=== PATIENT | female | born 1960 | race Caucasian/White ===

== ENCOUNTER 2017-04-02 08:06 | Emergency (ER) | payer OTHER ==
[2017-04-02 08:34] VITALS: BMI 29.6
[2017-04-02] MEDS ORDERED: Sodium Chloride 0.9% 1,000 ML IV STA (08:40)
--- NOTE | 2017-04-02 08:46 | ED PDOC ---
Arrival/HPI - General Chief Complaint: Flu-like Symptoms Time Seen by Provider: 04/02/17 08:09 Historian: Patient - History of Present Illness Narrative History of Present Illness (Text): 04/02/17 08:41 Cammy Rojas is a 56 year old female, whose past medical history includes hypertension, presents to the Emergency Department complaining of fever and right lower flank pain since few days. Patient states fever was "103-104 degrees " few days ago and has now lowered to "101 degrees". Patient informs associated mild cough, chills, dry mouth, itchy nose and throat. Patient denies any chest pain, shortness of breath, discomfort urinating, abdominal pain or any other complaints. Time/Duration: < week Symptom Course: Unchanged Activities at Onset: Light Context: Home Past Medical History - Provider Review Nursing Documentation Reviewed: Yes - Reproductive Menopause: Yes - Cardiac Hx Hypertension: Yes - Renal Hx Kidney Stones: Yes - Endocrine/Metabolic Hx Diabetes Mellitus Type 2: Yes - Hematological/Oncological Other/Comment: HIGH URIC ACID - Musculoskeletal/Rheumatological Hx Arthritis: Yes Hx Gout: Yes - Psychiatric Hx Substance Use: No - Surgical History Other/Comment: LITHOTREPSY - Anesthesia Hx Anesthesia: No Hx Anesthesia Reactions: No Hx Malignant Hyperthermia: No Family/Social History - Physician Review Nursing Documentation Reviewed: Yes Family/Social History: Unknown Family HX Smoking Status: Never Smoked Hx Alcohol Use: No Hx Substance Use: No Allergies/Home Meds Allergies/Adverse Reactions: Allergies No Known Allergies Allergy (Verified 05/09/15 22:41) Home Medications: Home Meds Medication Instructions Recorded Confirmed Atenolol [Tenormin] 100 mg PO DAILY 05/09/15 04/02/17 MetFORMIN [glucoPHAGE] 1,000 mg PO BID 05/09/15 04/02/17 Allopurinol [Zyloprim] 100 mg PO DAILY 04/02/17 04/02/17 Atorvastatin [Lipitor] 20 mg PO DAILY 04/02/17 04/02/17 Review of Systems - Physician Review All systems were reviewed & negative as marked: Yes - Review of Systems Constitutional: Fevers, Other (chills ) Eyes: Normal ENT: Sore Throat, Other (itchy nose ) Respiratory: Cough (mild cough ). absent: SOB Cardiovascular: Normal. absent: Chest Pain Gastrointestinal: Normal. absent: Abdominal Pain Genitourinary Female: Normal. absent: Dysuria Musculoskeletal: Back Pain (right lower flank ) Skin: Normal Neurological: Normal Endocrine: Normal Hemo/Lymphatic: Normal Psychiatric: Normal Physical Exam Vital Signs Reviewed: Yes Vital Signs Temp Pulse Resp BP Pulse Ox 04/02/17 11:05 79 18 138/79 98 04/02/17 11:03 98.7 F 16 130/72 100 04/02/17 08:54 99.3 F 04/02/17 08:41 98.9 F 04/02/17 08:24 99.3 F 86 16 142/84 96 Temperature: Afebrile Blood Pressure: Normal Pulse: Regular Respiratory Rate: Normal Appearance: Positive for: Well-Appearing, Non-Toxic, Comfortable Pain Distress: None Mental Status: Positive for: Alert and Oriented X 3 - Systems Exam Head: Present: Atraumatic, Normocephalic Pupils: Present: PERRL Extroacular Muscles: Present: EOMI Conjunctiva: Present: Normal Mouth: Present: Dry Neck: Present: Normal Range of Motion Respiratory/Chest: Present: Clear to Auscultation, Good Air Exchange. No: Respiratory Distress, Accessory Muscle Use Cardiovascular: Present: Regular Rate and Rhythm, Normal S1, S2. No: Murmurs Abdomen: Present: Normal Bowel Sounds. No: Tenderness, Distention, Peritoneal Signs Back: Present: Other (right lower flank pain ) Upper Extremity: Present: Normal Inspection. No: Cyanosis, Edema Lower Extremity: Present: Normal Inspection. No: Edema Neurological: Present: GCS=15, CN II-XII Intact, Speech Normal Skin: Present: Warm, Dry, Normal Color. No: Rashes Psychiatric: Present: Alert, Oriented x 3, Normal Insight, Normal Concentration Medical Decision Making ED Course and Treatment: 04/02/17 08:40 Impression: 56 year old female complaining of right lower flank pain and flue- like symptoms. Plan: -- CT Abdomen/Pelvis -- Labs -- Chest X-ray -- Tylenol -- IV Fluids -- Influenze vaccine -- Urinalysis -- Reassess and disposition 04/02/17 10:00 CT of Abdomen/Pelvis reviewed by radiologist, shows: No obstructive uropathy is identified bilaterally although a likely capsular punctate calcifications unchanged in position at the upper pole left kidney posteriorly an 8 mm intrarenal calculus is nonobstructive at the lower pole left kidney as well. No right-sided radiodense urolithiasis. No perinephric reaction bilaterally. Urinary bladder is poorly evaluated due to decompression with mural thickening not completely excluded. Consider potential cystitis or other etiologies though neither of these is favored given contraction of the bladder. No bowel obstruction, mesenteric edema, ascites or free intraperitoneal gas identified. Lack of contrast agents limits interpretation. 3.9 cm benign myelolipoma left adrenal gland again appreciated. 04/02/17 11:24 pt reassesed pain improved/resolved. influenza positive. neg sirs criteria. pt asking for dc. - Lab Interpretations Lab Results: 04/02/17 08:50 04/02/17 08:50 Lab Results 04/02/17 08:50: Influenza Typ A,B (EIA) Pos for influenza a H 04/02/17 08:50: Sodium 140, Potassium 3.9, Chloride 103, Carbon Dioxide 25, Anion Gap 15, BUN 7, Creatinine 0.7, Est GFR ( Amer) > 60, Est GFR (Non- Af Amer) > 60, Random Glucose 117 H, Calcium 9.2, Total Bilirubin 0.3, AST 25, ALT 29, Alkaline Phosphatase 71, Total Protein 7.7, Albumin 4.0, Globulin 3.7, Albumin/Globulin Ratio 1.1, Lipase 161 04/02/17 08:50: PT 12.2, INR 1.15 H, APTT 32.1 04/02/17 08:50: WBC 5.0 D, RBC 4.23, Hgb 12.0, Hct 37.2, MCV 87.9, MCH 28.4, MCHC 32.3, RDW 13.7, Plt Count 267, MPV 10.0, Gran % 59.7, Lymph % (Auto) 25.0, [place] % (Auto) 14.7 H, Eos % (Auto) 0.4 L, Baso % (Auto) 0.2, Gran # 3.01, Lymph # 1.3, [place] # 0.7 H, Eos # 0.0, Baso # 0.01 04/02/17 08:48: Urine Color Yellow, Urine Appearance Clear, Urine pH 6.5, Ur Specific [place] 1.020, Urine Protein Trace H, Urine Glucose (UA) Negative, Urine Ketones Negative, Urine Blood Small H, Urine Nitrate Negative, Urine Bilirubin Negative, Urine Urobilinogen 0.2, Ur Leukocyte Esterase Trace H, Urine RBC 2 - 5, Urine WBC 1 - 3, Ur Epithelial Cells 4 - 5, Amorphous Sediment Small, Urine Bacteria Many, Urine Other Uyeast - RAD Interpretation Radiology Orders: 04/02/17 08:40 ABD & PELVIS W/O PO OR IV CONT [CT] Stat 04/02/17 08:41 CHEST ONE VIEW [RAD] Stat Packaging Clerk: Radiologist - Medication Orders Current Medication Orders: Discontinued Medications Acetaminophen (Tylenol 325mg Tab) 975 mg PO STAT STA Stop: 04/02/17 08:41 Last Admin: 04/02/17 08:54 Dose: 975 mg MAR Pain/Vitals Document 04/02/17 08:54 MS (Rec: 04/02/17 08:55 [email or web address]) Pain Reassessment Is This A Pain ReAssessment? No Sleep Is patient sleeping during reassessment? No Presence of Pain Presence of Pain Yes Pain Scale Used Pain Scale Used Numeric Location Upper or Lower Lower Pain Location Body Site Back Description Constant Intensity 6 Scale Used Numeric Pain Behavior Facial Grimacing Vitals Temperature (97.6 F-99.6 F) 99.3 F Temperature Source Oral Sodium Chloride (Sodium Chloride 0.9%) 1,000 mls @ 1,000 mls/hr IV .Q1H STA Stop: 04/02/17 09:39 Last Admin: 04/02/17 08:53 Dose: 1,000 mls/hr eMAR Start Stop Document 04/02/17 08:53 MS (Rec: 04/02/17 08:54 MS [email or web address]) Intravenous Solution Start Date 04/02/17 Start Time 08:53 End Date 04/02/17 End time 09:53 Total Infusion Time 60 Oseltamivir Phosphate (Tamiflu Cap) 75 mg PO STAT STA PRN Reason: Protocol Stop: 04/02/17 09:19 Last Admin: 04/02/17 09:50 Dose: 75 mg - [place] Statement The provider has reviewed the documentation as recorded by the Kelvin Justin. All medical record entries made by the Kelvin were at my direction and personally dictated by me. I have reviewed the chart and agree that the record accurately reflects my personal performance of the history, physical exam, medical decision making, and the department course for this patient. I have also personally directed, reviewed, and agree with the discharge instructions and disposition. Disposition/Present on Arrival - Present on Arrival Any Indicators Present on Arrival: No History of DVT/PE: No History of Uncontrolled Diabetes: No Urinary Catheter: No History of Decub. Ulcer: No History Surgical Site Infection Following: None - Disposition Have Diagnosis and Disposition been Completed?: Yes Diagnosis: Influenza Disposition: HOME/ ROUTINE Disposition Time: 11:00 Patient Plan: Transfer To Condition: STABLE Discharge Instructions (ExitCare): Influenza (ED), Flank Pain (ED) Additional Instructions: please follow up with your doctor. return to er with worsening symptoms or concerns. Prescriptions: Oseltamivir Phosphate [Tamiflu] 75 mg PO BID #10 capsule Referrals: Romain Cardozo MD [Primary Care Provider] - Follow up with primary Forms: [employer] ([place])
[2017-04-02 09:03] LABS: BASO # 0.01 K/mm3 (0.0-2.0); BASO % 0.2 % (0.0-3.0); EOS % 0.4 % (1.5-5.0); GRAN # 3.01 (1.4-6.5); GRAN % 59.7 % (50.0-68.0); LYMPH # 1.3 (1.2-3.4); MEAN CELL VOLUME 87.9 fl (80.0-105.0); MEAN CORPUSCULAR HEMOGLOBIN 28.4 pg (25.0-35.0); MEAN CORPUSCULAR HGB CONC 32.3 g/dl (31.0-37.0); MONO # 0.7 (0.1-0.6); MONO % 14.7 % (1.0-6.0); RBC 4.23 10^6/uL (3.5-6.1); RED CELL DISTRIBUTION WIDTH 13.7 % (11.5-14.5)
[2017-04-02 09:08] LABS: ALB/GLOB RATIO 1.1 (1.1-1.8); ALT/SGPT 29 U/L (7-56); AST/SGOT 25 U/L (14-36); BLOOD UREA NITROGEN 7 mg/dL (7-21); CALCIUM 9.2 mg/dL (8.4-10.5); GFR AFRICAN-AMERICAN > 60; GFR NON-AFRICAN AMERICAN > 60; LIPASE 161 U/L (23-300)
[2017-04-02 09:10] LABS: PH,URINE 6.5 (4.7-8.0); URINE BILIRUBIN NEGATIVE (NEGATIVE); URINE BLOOD SMALL (NEGATIVE); URINE GLUCOSE (UA) NEGATIVE (NEGATIVE); URINE LEUKOCYTE ESTERASE TRACE Leu/uL (NEGATIVE); URINE NITRATE NEGATIVE (NEGATIVE); URINE PROTEIN TRACE mg/dL (<30 mg/dL); URINE UROBILINOGEN 0.2 E.U./dL (<1 E.U./dL)
[2017-04-02 09:13] LABS: URINE APPEARANCE CLEAR (CLEAR); URINE COLOR YELLOW (YELLOW)
[2017-04-02 09:14] LABS: INR 1.15 (0.93-1.08); PARTIAL THROMBOPLASTIN TIME 32.1 Seconds (25.1-36.5); PROTHROMBIN TIME 12.2 SECONDS (9.4-12.5)
[2017-04-02 09:18] LABS: URINE AMORPHOUS SEDIMENT SMALL; URINE BACTERIA MANY (NEG)
--- NOTE | 2017-04-02 10:11 | CT ---
PROCEDURE: CT Abdomen and Pelvis without intravenous contrast HISTORY: flank pain COMPARISON: Abdomen and pelvis CT examination with contrast 07/21/2016. TECHNIQUE: Helical CT of the abdomen and pelvis was performed without oral or intravenous contrast as per referring physician request. Contrast Dose: None Radiation dose: Total exam DLP = 938.18 mGy-cm. This CT exam was performed using one or more of the following dose reduction techniques: Automated exposure control, adjustment of the mA and/or kV according to patient size, and/or use of iterative reconstruction technique. FINDINGS: LOWER THORAX: Mild cardiomegaly is again appreciated. No pleural or pericardial effusion. Linear atelectasis hotel server for or fibrosis is appreciated at the left base in the interval. LIVER: Unremarkable. No gross lesion or ductal dilatation. GALLBLADDER AND BILE DUCTS: Unremarkable. PANCREAS: Unremarkable. No gross lesion or ductal dilatation. SPLEEN: Unremarkable. ADRENALS: The right adrenal gland remains unremarkable appearing. Left adrenal gland is remarkable for a 3.9 x 3.2 cm largely fatty lesion compatible with benign myelolipoma once again. KIDNEYS AND URETERS: No interval obstructive uropathy bilaterally. The perinephric spaces are unremarkable bilaterally as well. An 8 mm intrarenal calculus noted at the lower pole left kidney with a punctate calcification in the periphery of the upper pole left kidney renal parenchyma, which may actually be capsular rather than parenchymal. VASCULATURE: Unremarkable. No aortic aneurysm. BOWEL: Stomach is mildly distended with retained fluid and is limited evaluation. Lack of oral contrast further limits evaluation of the gastrointestinal tract. There is no bowel obstruction appreciated with moderate fecal loading seen throughout the majority colon. APPENDIX: Unremarkable. Normal appendix. PERITONEUM: Unremarkable. No free fluid. No free air. LYMPH NODES: Unremarkable. No enlarged lymph nodes. BLADDER: Evaluation the urinary bladder wall as poor due to decompression. No focal nodularity is seen related. No radiodense urolithiasis. REPRODUCTIVE: Unremarkable. BONES: No acute fracture. OTHER FINDINGS: None. IMPRESSION: No obstructive uropathy is identified bilaterally although a likely capsular punctate calcifications unchanged in position at the upper pole left kidney posteriorly an 8 mm intrarenal calculus is nonobstructive at the lower pole left kidney as well. No right-sided radiodense urolithiasis. No perinephric reaction bilaterally. Urinary bladder is poorly evaluated due to decompression with mural thickening not completely excluded. Consider potential cystitis or other etiologies though neither of these is favored given contraction of the bladder. No bowel obstruction, mesenteric edema, ascites or free intraperitoneal gas identified. Lack of contrast agents limits interpretation. 3.9 cm benign myelolipoma left adrenal gland again appreciated.
[2017-04-02 11:05] VITALS: BP 138/79; PULSE 79; RESP 18; O2SAT 98
[2017-04-02 11:08] VITALS: TEMP 98.7
--- NOTE | 2017-04-02 11:12 | RAD ---
PROCEDURE: CHEST RADIOGRAPH, 1 VIEW HISTORY: cough COMPARISON: 05/31/2016 FINDINGS: LUNGS: Clear. PLEURA: No pneumothorax or pleural fluid seen. CARDIOVASCULAR: Normal. OSSEOUS STRUCTURES: No significant abnormalities. VISUALIZED UPPER ABDOMEN: Normal. OTHER FINDINGS: None. IMPRESSION: No active disease.
== END 2017-04-02 11:08 | disposition home or self-care (01) ==
LOC: ED 08:06
DX: J11.1 Influenza due to unidentified influenza virus with other respiratory manifestations (principal); I10 Essential (primary) hypertension
CPT/HCPCS: 71010; 74176; 80053; 81001; 83690; 85025; 85610; 85730; 87086; 87181; 87804; 96360; 99283; J7040